=== PATIENT | male | born 1950 | race Caucasian/White ===

== ENCOUNTER 2018-11-06 13:07 | Inpatient (IN) | payer OTHER ==
[~2018-11-06] VITALS: Ht 188 cm; Wt 111.6 kg
--- NOTE | 2018-11-06 13:17 | NUR ---
AWAKE ALERT ORIENTED, UNHAPPY PATIENT, BROUGHT IN BY AMBULANCE C/O LT LEG SWELLING MODERATE PAIN SINCE 2 WEEKS,LT LOWER LEG SWOLLEN WITH REDNESS,POSSIBLE CELLULITIS,
--- NOTE | 2018-11-06 13:46 | NUR ---
I INFORMED PT OF THE NEED FOR URINE HE IS AWARE OF
--- NOTE | 2018-11-06 13:52 | NUR ---
BLOOD CULTURES COLLECTED BY FUR FLOOR WORKER, PT TOLERATED WELL.
--- NOTE | 2018-11-06 13:53 | NUR ---
PT LOOKS LIKE HE HASNT HAD A SHOWER IN A FEW DAYS.PT HAS A BAD BODY ODOR, PT STATES' dont woryy about when i
[2018-11-06 13:54] LABS: RED CELL DISTRIBUTION WIDTH 16.3 % (11.5-14.5)
[2018-11-06 14:01] LABS: PLATELET COUNT 32 x10^3mcL (130-400)
[2018-11-06 14:04] LABS: CALCIUM 7.4 mg/dL (8.5-10.1); CARBON DIOXIDE 23.9 mmol/L (21-32); CHLORIDE SERUM 100 mmol/L (98-107); CREATININE SERUM 1.6 mg/dL (0.7-1.3); GFR1 46 mL/min; GLUCOSE SERUM 126 mg/dL (74-106); POTASSIUM SERUM 3.6 mmol/L (3.5-5.1); SODIUM SERUM 132 mmol/L (136-145)
[2018-11-06 14:09] LABS: ALKALINE PHOSPHATASE 55 U/L (46-116); ALT/SGPT 37 U/L (16-63); AST/SGOT 53 U/L (15-37); BILIRUBIN TOTAL 2.19 mg/dL (0.20-1.00)
[2018-11-06 14:13] LABS: ALBUMIN 2.3 g/dL (3.4-5.0); TOTAL PROTEIN, SERUM 5.4 g/dL (6.4-8.2)
[2018-11-06 14:29] LABS: ATYPICAL LYMPH 1 %; BAND NEUTROPHIL 2 % (0-10); BASOPHIL 0 % (0-2); MONOCYTE 1 % (0-7); SEGMENTED NEUTROPHILS 94 % (37-75)
[2018-11-06 14:30] LABS: PLATELET MORPHOLOGY PLATELETS DECREASED
[2018-11-06 14:31] LABS: ovalocyte/elliptocyte 1+; rbc morphology (normal/abnorm) ABNORMAL (NORMAL)
--- NOTE | 2018-11-06 15:26 | NUR ---
FOR ADMISSION ,PT AWARE, VANCOMYCIN IN PROGRESS, SLEEPING EASILY AWAKABLE
--- NOTE | 2018-11-06 15:53 | NUR ---
ADMITTED TO [facility], AWAKE ALERT, LEVER MILLER IN SR NO ECTOPY,RESP. EASY ,VANCOMYCIN IN PROGRESS
--- NOTE | 2018-11-06 16:10 | NUR ---
RECEIVED PT FROM ED VIA [facility], CAME IN DUE TO LLE PAIN W/ SWELLING AND REDNESS X1 WEEK. AAOX4. C/O DIZZINESS WHEN LYING FLAT IN BED. SPEECH IS CLEAR. ABLE TO FOLLOW COMMANDS. NO SOB NOTED, LUNG SOUNDS CTA. DENIES CHEST PAIN/PRESSURE, SR ON THE MONITOR. DENIES ABDOMINAL DISCOMFORT, ABDOMEN IS DISTENDED AND SOFT, BOWEL SOUNDS ACTIVE. VOIDS. W/ BLACK DISCOLORATION ON BLE. W/ ERYTHEMA AND SWELLING ON LLE. JAUNDICE NOTED. C/O 10/10 LLE PAIN WHEN TOUCHED, PAIN DESCRIBED CUTTING KNIFE. LLE ELEVATED W/ PILLOW. SIDE RAILS UPX2. CALL LIGHT ON REACH. RECEIVED PT FROM ED W/ VANCOMYCIN ONGOING. PRIMARY NURSE MJ AT BEDSIDE FOR CONTINUITY OF CARE
[2018-11-06 16:27] VITALS: BP 114/56
[2018-11-06 16:34] VITALS: Ht 188 cm; Wt 111.6 kg
--- NOTE | 2018-11-06 16:40 | NUR ---
PATIENT URINATED APPROX 75 ML OF MASHA URINE VIA URINAL. URINE SAMPLE COLLECTED AND SENT TO LAB FOR URINALYSIS. WILL CONTINUE TO MONITOR.
--- NOTE | 2018-11-06 19:35 | NUR ---
AWAKE AND ALERT, ORIENTED TO NAME, PLACE, TIME AND SITUATION. SPEECH CLEAR AND APPROPRAITE. BREATHING EVEN AND UNLABORED ON ROOM AIR. SINUS RHYTHM ON TELE, APPEARS TO HAVE ELEVATED T WAVE. DENIES HAVING CHEST PAIN OR CHEST DISCOMFORT. DENIES HAVING SHORTNESS OF BREATH. IVF OF NS AT 100ML/HR. DARK, DUSKY DISCOLORATIONS TO BOTH LEGS. ERYTHEMA AND SWELLING NOTED TO LEFT LEG. CALL LIGHT WITHIN EASY REACH.
[2018-11-06 20:31] VITALS: BP 107/56
--- NOTE | 2018-11-06 21:16 | NUR ---
IV TO LEFT HAND WILL NOT FLUSH, REMOVED. IV TO LEFT AC, 20G, FLUSHED WELL.
--- NOTE | 2018-11-06 22:58 | NUR ---
URINE SPECIMEN SENT TO LAB
[2018-11-06 23:14] LABS: microscopic required? YES; urine erythrocyte 3+ (NEGATIVE)
--- NOTE | 2018-11-06 23:20 | NUR ---
EYES CLOSED, BREATHING EVEN AND UNLABORED. HOB KEPT ELEVATED 30 DEG. CALL LIGHT WITHIN EASY REACH.
[2018-11-07 05:12] VITALS: BP 125/58
--- NOTE | 2018-11-07 07:10 | NUR ---
RECIEVED PT FROM NIGHT NURSE. PT IS LAYING DOWN IN BED WITH HOB UP. RESPRIATIONS EVEN AND UNLABORED ON ROOM AIR. PT LOOKS TO BE IN NO ACUTE DISTRESS AND DENIES ANY PAIN AT THIS TIME. TELE 4 PRESENT. IV SITE PATENT WITH NO SIGNS OF ERYTHEMA OR SWELLING WITH IV FLUIDS INFUSING. BED IN LOWEST POSITION. CALL LIGHT WITHIN REACH. WILL CONTINUE TO MONITOR.
--- NOTE | 2018-11-07 07:13 | NUR ---
EYES CLOSED, EASILY AWAKENED. BREATHING EVEN AND UNLABORED. STILL WITH SWELLING AND ERYTHEMA TO LEFT LEG. IN NO ACUTE DISTRESS. ENDORSED TO NURSE SAM. CALL LIGHT WITHIN EASY REACH.
[2018-11-07 07:39] LABS: CALCIUM 7.4 mg/dL (8.5-10.1); CARBON DIOXIDE 22.3 mmol/L (21-32); CREATININE SERUM 1.5 mg/dL (0.7-1.3); MAGNESIUM 1.9 mg/dL (1.8-2.4); POTASSIUM SERUM 3.6 mmol/L (3.5-5.1)
[2018-11-07 08:14] VITALS: BP 120/60
[2018-11-07 09:33] LABS: RED CELL DISTRIBUTION WIDTH 16.8 % (11.5-14.5)
[2018-11-07 10:17] LABS: ATYPICAL LYMPH 0 %; BAND NEUTROPHIL 8 % (0-10); BASOPHIL 0 % (0-2); MONOCYTE 2 % (0-7); PLATELET MORPHOLOGY PLATELETS DECREASED; SEGMENTED NEUTROPHILS 86 % (37-75); rbc morphology (normal/abnorm) ABNORMAL (NORMAL)
[2018-11-07 11:48] LABS: PLATELET COUNT 29 x10^3mcL (130-400)
[2018-11-07 11:54] VITALS: BP 135/68
--- NOTE | 2018-11-07 13:10 | NUR ---
PT COMPLAINING OF LEG PAIN 03/06. ERYTHEMA AND SWELLING TO LLE. ELEVATED LLE ON PILLOW AND WILL MEDICATE ACCORDING TO EMAR.
[2018-11-07 16:34] VITALS: BP 130/71
--- NOTE | 2018-11-07 18:53 | NUR ---
PT IS LAYING DOWN IN BED WITH HOB UP. PT LOOKS TO BE IN NO ACUTE DISTRESS AT THIS TIME. IV SITE PATENT WITH NO SIGNS OF ERYTHEMA OR SWELLING WITH IV FLUIDS INFUSING. DISCOLORATION TO BLE AND ERYTHEMA AND EDEMA TO LLE. RESPRIATIONS EVEN AND UNLABORED ON ROOM AIR. BED IN LOWEST POSITION. CALL LIGHT WITHIN REACH. WILL ENDORSE TO ONCOMING SHIFT.
--- NOTE | 2018-11-07 19:51 | NUR ---
AAO X 4. SPEECH CLEAR AND APPROPRIATE. HOB ELEVATED 30 DEG. SIDE RAILS IN RAISED POSITION, BED IN LOWEST POSITION. BREATHING EVEN AND UNLABORED ON ROOM AIR. AMBULATORY WITH ASSISTANCE. IVF OF NS INFUSING AT 100ML/HR. BOTH LEGS ARE DUSKY IN COLOR, WITH ERYTHEMA AND SWELLING TO LEFT LEG.
[2018-11-07 21:09] VITALS: BP 112/56
--- NOTE | 2018-11-07 22:33 | NUR ---
CALLED RADIOLOGY, SPOKE WITH SHELBY, TO FOLLOW-UP RESULTS OF US ABD.
--- NOTE | 2018-11-08 00:21 | NUR ---
PLACED US ABD RESULTS IN CHART.
--- NOTE | 2018-11-08 00:22 | NUR ---
EYES CLOSED, BREATHING EVEN AND UNLABORED. SLEEPING ON HIS RIGHT SIDE. PT REPOSITIONS SELF IN BED. CALL LIGHT WITHIN EASY REACH. HOB KEPT ELEVATED 30 DEG.
--- NOTE | 2018-11-08 05:38 | NUR ---
EYES CLOSED, EASILY AWAKENED. VOIDING WELL, VOIDED TO URINAL. MASHA COLORED URINE. STILL WITH ERYTHEMA TO LEFT LOWER EXTREMITY. IVF INFUSING WELL. IV SITE FREE FROM ERYTHEMA OR SWELLING.
[2018-11-08 05:46] VITALS: BP 126/50
[2018-11-08 07:14] LABS: CALCIUM 6.9 mg/dL (8.5-10.1); CARBON DIOXIDE 21.2 mmol/L (21-32); CHLORIDE SERUM 104 mmol/L (98-107); CREATININE SERUM 1.2 mg/dL (0.7-1.3); GFR1 > 60 mL/min; GLUCOSE SERUM 87 mg/dL (74-106); POTASSIUM SERUM 3.6 mmol/L (3.5-5.1); SODIUM SERUM 136 mmol/L (136-145)
--- NOTE | 2018-11-08 07:16 | NUR ---
AWAKE AND ALERT, ASKING ABOUT BREAKFAST. BREATHING UNLABORED ON ROOM AIR. CALL LIGHT WITHIN EASY REACH. STILL WITH ERYTHEMA TO LEFT LOWER EXTREMITY. ENDORSED TO NURSE LO
[2018-11-08 07:35] LABS: BASOPHIL % 0.1 % (0-2)
[2018-11-08 07:48] LABS: PLATELET COUNT 46 x10^3mcL (130-400); RED CELL DISTRIBUTION WIDTH 17.1 % (11.5-14.5)
--- NOTE | 2018-11-08 07:50 | NUR ---
RC'D PT RESTING IN BED WITH NO APPARENT SIGNS OF DISTRESS. A/A/O/X4, SPEECH CLEAR AND APPROPRIATE. DENIES BEE/DIZZINESS. ON TELE, DENIES CHEST PAIN/PRESURE. PALP PULSES, EDEMA NTOED TO BLE. RESPIRATIONS EQUAL AND UNLABORED. LUNGS DIM. ON RA, DENIES SOB. ABDOMEN ROUND AND OBESE. ACTIVE BS.DENIES N/V. VOIDS FREELY, URINAL AT BEDSIDE. GENERALIZED WEAKNESS. BLE EDEMA/DARK/DUSKY NOTED, ELECTRIC TRACK SWITCH MAINTAINER, ELEVATED ON PILLOW. PT DENIES EXCESSIVE PAIN AT THIS TIME. IV PATENT AND INTACT. BE DIN LOW POSITION. CALL LIGHT IN REACH. WILL CONTINUE TO MONITOR
--- NOTE | 2018-11-08 08:29 | NUR ---
AM MEDICATION COLCAE REFUSED AT THIS TIME. PT RESTING IN BED WITH NO APPARENT SIGNS OF DISTRESS. RESPIRATIONS EQUAL AND UNLABORED. ON RA, DENIES OSB. PT DENIES PAIN AT THIS TIME. BED IN LOW POSITION. CALL LIGHT IN REACH. WILL CONTINUE TO MONITOR
[2018-11-08 09:48] VITALS: BP 125/53
[2018-11-08 12:32] VITALS: BP 156/58
--- NOTE | 2018-11-08 12:54 | NUR ---
PT SITTING IN CHAIR WITH NO APPARENT SIGNS OF DISTRESS. RESPIRATIONS EQUAL AND UNLABORED. ON RA, DENIES SOB. PT DENIES EXCESSIVE PAIN AT THIS TIME. BEDIN LOW POSITION. CALL LIGHT IN REACH. WILL CONTINUE TO MONITOR
[2018-11-08 16:32] VITALS: BP 138/59
--- NOTE | 2018-11-08 17:46 | NUR ---
REMOVED IV FROM LAC, NO S/S BLEEDING OR INFECTION; INSERTED NEW IV CATH TO LFA, GOOD BLOOD RETURN, GOOD FLUSHING. WILL ENDORSE TO KATHRYN LO.
--- NOTE | 2018-11-08 18:51 | NUR ---
PT RESTING IN CHAIR, MEDSURG. NO APPARENT S/S OF CHEST PAIN/PRESSURE. RESPIRATIONS EQUAL AND UNLABORED. ON RA, DEIES SOB. JNO ACUTE SKIN CHANGES NOTED AT THIS TIME. GENERALIZED WEAKNESS. IV PATENT AND INTACT. BED IN LOW POSTIION. CALL LIGHT IN REACH. WILL ENDORSE TO JV BASEBALL COACH RN
--- NOTE | 2018-11-08 19:33 | NUR ---
PT RECIEVED FROM THE DAY SHIFT RN. PT IS ALERT AND ORIENTED X4. PT IS WATCHING TV AT THIS TIME. NO ACUTE DISTRESS NOTED. PT HAS NO COMPLAINT OF PAIN AT THIS TIME. SAFETY AND COMFORT MEASURES MAINTAINED, BED IN LOWEST POSITION, CALL LIGHT WITHIN REACH.
[2018-11-08 21:14] VITALS: BP 136/58
--- NOTE | 2018-11-09 00:10 | NUR ---
PT IS RESTING IN BED WITH EYES CLOSED AT THIS TIME. NO ACUTE DISTRESS NOTED AT THIS TIME. PT IV INFUSING AND INTACT. SAFETY AND COMFORT MEASURES MAINTAINED, BED IN LOWEST POSITION, CALL LIGHT WITHIN REACH. WILL CONTINUE TO MONITOR AT THIS TIME. PT STOOL IS BROWN AND LIQUID IN CONSISTENCY. THIS IS THE PATIENTS SECOND STOOL. WILL CONTINUE TO MONITOR AT THIS TIME.
--- NOTE | 2018-11-09 02:24 | NUR ---
PT IS RESTING IN BED WITH EYES CLOSED AT THIS TIME. NO ACUTE DISTRESS NOTED. NO S/S OF PAIN AT THIS TIME. SAFETY AND COMFORT MEASURES MAINTAINED, BED IN LOWEST POSITION, CALL LIGHT WITHIN REACH.
--- NOTE | 2018-11-09 05:09 | NUR ---
PT HAS RESTED IN INTERMITTENT INTERVALS THROUGHOUT THE SHIFT. PT HAS BEEN AGITATED AT TIMES, BUT OVERALL PLEASANT DURING THE SHIFT. NO COMPLAINT OF PAIN AT THIS TIME. COMMODE AT BEDSIDE, IV INFUSING AND INTACT. NO ACTUE DISTRESS NOTED. SAFETY AND COMFORT MEASURES MAINTAINED, BED IN LOWEST POSITION, CALL LIGHT WITHIN REACH.
[2018-11-09 05:24] VITALS: BP 132/53
--- NOTE | 2018-11-09 05:31 | NUR ---
PT HAS ELEVATED TEMPERATURE OF 101.1 TEMPORAL. 650 MG TYLENOL GIVEN. WILL REASSESS TEMPERATURE.
[2018-11-09 07:40] LABS: BASOPHIL % 0.2 % (0-2)
--- NOTE | 2018-11-09 07:40 | NUR ---
RC'D PT RESTING IN BED WITH NO APPARENT SIGNS OF DISTRESS. A/A/O/X4, SPEECH CLEAR AND APPROPRIATE. DENIES BEE/DIZZINESS. MEDSURG. DENIES CHEST PAIN/PRESSURE. PALP PULSES, EDEMA NOTED TO LLE. RESPIRAITONS EQUAL AND UNLABROED. LUNGS DIM. ON RA, DENIES SOB. ABDOMEN ROUND AND SOFT. ACTIVE BS. DENIES N/V AT THIS TIME. VOIDS FREELY. GENERALIZED WEAKNESS. AMB WITH ASSIST. BLE DARK DUSKY SKIN, LLE ERYTHEMA AND INFLAMMATION, MITALI AND ELEVATED. PT DENIES EXCESSIVE PAIN AT THIS TIME. IV PATENT AND INTACT. BED IN LOW POSITION. CALL LIGHT IN REACH. WILL CONTINUE TO MONITOR
[2018-11-09 07:42] LABS: PLATELET COUNT 59 x10^3mcL (130-400); RED CELL DISTRIBUTION WIDTH 16.8 % (11.5-14.5)
[2018-11-09 07:49] LABS: CALCIUM 7.2 mg/dL (8.5-10.1); CARBON DIOXIDE 19.7 mmol/L (21-32); CHLORIDE SERUM 107 mmol/L (98-107); CREATININE SERUM 1.1 mg/dL (0.7-1.3); GFR1 > 60 mL/min; GLUCOSE SERUM 90 mg/dL (74-106); MAGNESIUM 2.1 mg/dL (1.8-2.4); POTASSIUM SERUM 3.8 mmol/L (3.5-5.1); SODIUM SERUM 137 mmol/L (136-145)
[2018-11-09 09:00] VITALS: BP 129/67
--- NOTE | 2018-11-09 09:10 | NUR ---
PT REFUSED AM MEDICATIONS. PT PASSIVE AT THIS TIME, JUST "WANTS TO BE LEFT ALONE TO SLEEP". RESPIRATIONS EQUAL AND UNLABORED. ON RA, NO S/S OF RESP DISTRESS. BED IN LOW POSITION. CALL LIGHT IN REACH.WILL COTNINUE TO MONITOR
--- NOTE | 2018-11-09 10:53 | NUR ---
PT C/O OF PAIN, MEDICATED PER EMAR. RESPIRATIONS EQUAL AN DUNLABORED. ON RA, DENIES SOB. BED IN LOW POSITION. CALL LIGHT IN REACH. WILL COTNINUE TO MONITOR
--- NOTE | 2018-11-09 13:54 | NUR ---
PHYSICAL THERAPY NOTE SEEN FOR FOLLOW UP PHYSICAL THERAPY TX SESSION. DEMO IND ON BED MOB, TRANSFER AND GAIT. FURTHER TX SESSIONS NOT INDICATED AT THIS TIME. END TO NSG FOR ADLS AND MOB NEEDS
[2018-11-09] MEDS ORDERED: NORCO1 TA2 PO (15:34)
[2018-11-09] MEDS ORDERED: ROC1I IV (15:34)
[2018-11-09] MEDS ORDERED: COL100 PO (15:35)
[2018-11-09] MEDS ORDERED: VANCO 1.51.5 GM/250 IV (15:35)
--- NOTE | 2018-11-09 17:05 | NUR ---
PT RESTING IN BED SLEEPING WITH VISIBLE RESPIRATIONS, NO RESP DISTRESS NOTED. MEDSURG. NO CP. NO ACUTE SKIN CHANGES NOTED. IV PATENT AND INTACT. BED IN LOW POSITION. CALL LIGHT IN REACH. WILL ENDORSE TO SHANK PINNER RN
--- NOTE | 2018-11-09 19:19 | NUR ---
PT RECIEVED FROM THE DAY SHIFT RN. PT IS ALERT AND ORIENTED X4, PT IS NON-COMPLIANT WITH CARE, HOWEVER AT THIS TIME PT IS CALM AND COOPERATIVE WITH CARE. NO ACUTE DISTRESS NOTED. PT VANCOMYCIN IS RUNNING AT THIS TIME. SAFETY AND COMFORT MEASURES MAINTAINED, BED IN LOWEST POSITION, CALL LIGHT WITHIN REACH.
[2018-11-09 21:31] VITALS: BP 146/52
--- NOTE | 2018-11-10 00:20 | NUR ---
PT IS RESTING IN BED WITH EYES CLOSED, PT HAS BEEN CALM AND COOPERATIVE WITH CARE. NO ACUTE DISTRESS NOTED. NO S/S OF PAIN NOTED. SAFETY AND COMFORT MEASURES MAINTAINED, BED IN LOWEST POSITION, CALL LIGHT WITHIN REACH. WILL CONTINUE TO MONITOR AT THIS TIME.
--- NOTE | 2018-11-10 03:25 | NUR ---
PT IS RESTING IN BED WITH EYES CLOSED AT THIS TIME. NO ACUTE DISTRESS NOTED. NO S/S OF PAIN NOTED. PT HAS BEEN CALM AND COOPERATIVE WITH CARE AT THIS TIME.
[2018-11-10 05:10] VITALS: BP 146/54
--- NOTE | 2018-11-10 05:16 | NUR ---
PT HAS SLEPT IN INTERMITTENT INTERVALS THROUGHOUT THE SHIFT. PT HAS BEEN ALERT AND ORIENTED X3. NO COMPLAINT OF PAIN AT THIS TIME. IV INFUSING AND INTACT, PT HAS BEEN CALM AND COOPERATIVE WITH CARE. SAFETY AND COMFORT MEASURES MAINTAINED, BED IN LOWEST POSITION, CALL LIGHT WITHIN REACH, WILL ENDORSE CONTINUITY OF CARE TO ONCOMING RN.
--- NOTE | 2018-11-10 07:20 | NUR ---
RECEIVED PATIENT FROM COST ACCOUNTING ANALYST NURSE. PATIENT IS RESTING WITH BOTH EYES CLOSED, AROUSABLE. ON ROOM AIR, BREATHING APPEARS EVEN AND UNLABORED. DARK DISCOLORATION NOTED TO BLE. IV NOTED TO RFA, IVF INFUSING WELL ORDERED, NO S/S REDNESS OR EDEMA AT SITE. CALL LIGHT WITHIN EASY REACH. WILL CONTINUE PLAN OF CARE.
[2018-11-10 08:17] VITALS: BP 144/69
--- NOTE | 2018-11-10 09:02 | NUR ---
SPOKE WITH PATIENT REGARDING PICC LINE PLACEMENT. PATIENT STATES "I AM NOT LEAVING THE HOSPITAL TODAY. I AM FINE WITH THE IV FOR A LONG TIME BUT ONLY IF I CAN USE IT IN THE HOSPITAL. I DO NOT WANT A NURSE TO HELP ME OUTSIDE THE HOSPITAL. TEACH ME AND I WILL DO IT ALL MYSELF. MY LEG INFECTION IS BAD." PATIENT REASSURED AND EXPLAINED THE IMPORTANCE OF THE PICC LINE FOR RESIDENTIAL IV ABX USE WITH ASSISTANCE FROM A NURSE TO ADMINISTER MEDICATIONS. DR MERCEDES PAGED AT THIS TIME REGARDING PATIENTS STATEMENT PRIOR TO CALLING PICC PLACEMENT COMPANY DUE TO PATIENTS NON COMPLIANCE WITH CARE. CHARGE NURSE, MICHELL BADILLO.
--- NOTE | 2018-11-10 09:34 | NUR ---
SPOKE WITH DR MERCEDES REGARDING PICC LINE PLACEMENT FOR PATIENT. TO CONTINUE WITH PLACEMENT. PICC LINE # CALLED AT WITH NO ANSWER X2. UNABLE TO LEAVE . NUMBER VERIFIED WITH [employer] [employer]. PENDING CALL BACK FROM [facility].
[2018-11-10 11:40] VITALS: BP 145/66
--- NOTE | 2018-11-10 12:41 | NUR ---
PICC RN'S PLUS CALLED AT # . PENDING CALL BACK FROM RN FOR PICC PLACEMENT.
[2018-11-10 13:09] VITALS: BP 145/66
--- NOTE | 2018-11-10 14:33 | NUR ---
INFORMED CONSENT SIGNED AT THIS TIME. PICC LINE NURSE TO BE CONTACTED. DR MERCEDES INFORMED OF PATIENTS DISCHARGE APPEAL.
[2018-11-10 16:13] VITALS: BP 143/67
--- NOTE | 2018-11-10 18:19 | NUR ---
ATTEMPTED TO CALL PICC LINE NURSE WITH NO ANSWER. MESSAGE LEFT REGARDING ETA FOR PICC LINE PLACEMENT.
--- NOTE | 2018-11-10 18:30 | NUR ---
PATIENT RESTING IN BED WITH NO C/O PAIN OR DISCOMFORT AT REST. BLE ELEVATED AT THIS TIME. IV SITE PATENT AND INVF INFUSING WELL, NO S/S ERYTHEMA AT SITE. CALL LIGHT WITHIN EASY REACH. WILL ENDORSE PATIENT CARE TO CORPORATE BANKING OFFICER NURSE.
--- NOTE | 2018-11-10 19:20 | NUR ---
CARE ASSUMED FROM OUTGOING RN. NO ACUTE DISTRESS NOTED. EVEN AND UNLABORED RESPIRATIONS NOTED ON RA. DENIES ANY CHEST PAIN/PRESSURE. ERYTHEMA NOTED ON LLE. PITTING EDEMA NOTED TO BLE. DARK DISCOLORATIONS NOTED TO BLE. BED IN LOWEST POSITION. SIDE RAILS UP X2. CALL LIGHT WITHIN REACH. WILL CONTINUE TO MONITOR.
--- NOTE | 2018-11-10 20:20 | NUR ---
PICC LINE RN AT BEDSIDE. TIME OUT PERFORMED. ALL CONSENT AND PAPERWORK SIGNED. ALL EQUIPMENT AT BEDSIDE. WILL CONTINUE TO MONITOR.
--- NOTE | 2018-11-10 21:10 | NUR ---
PICC RN COMPLETED INSERTION OF PICC LINE. RADIOLOGY AT BEDSIDE PERFORMING CXR FOR VERIFICATION OF PICC LINE PLACEMENT. PT TOLERATED PROCEDURE WELL. NO ACUTE DISTRESS NOTED. BED IN LOWEST POSITION. SIDE RAILS UP X2. CALL LIGHT WITHIN REACH. WILL CONTINUE TO MONITOR.
[2018-11-10 22:36] VITALS: BP 139/60
--- NOTE | 2018-11-10 23:34 | NUR ---
IV TO RAC LEAKING. DC'ED IV. INSERTED IV TO LEFT WRIST WITH BLOOD RETURN AND FLUSHING WELL. RESTARTED IV FLUIDS PER EMAR. PT TOLERATED PROCEDURE WELL. BED IN LOWEST POSITION. SIDE RAILS UP X2. CALL LIGHT WITHIN REACH. WILL CONTINUE TO MONITOR.
--- NOTE | 2018-11-11 00:24 | NUR ---
PT RESTING COMFORTABLY IN BED. NO ACUTE DISTRESS NOTED. EVEN AND UNLABORED RESPIRATIONS NOTED ON RA. IV PATENT AND INTACT RUNNING FLUIDS PER EMAR. LEG PAIN RESOLVING WITH ON/OFF TINGLING SENSATION. BED IN LOWEST POSITION. SIDE RAILS UP X2. CALL LIGHT WITHIN REACH. WILL CONTINUE TO MONITOR.
[2018-11-11 04:42] VITALS: BP 131/80
[2018-11-11 06:40] LABS: BASOPHIL % 0.4 % (0-2)
[2018-11-11 06:41] LABS: PLATELET COUNT 99 x10^3mcL (130-400); RED CELL DISTRIBUTION WIDTH 16.1 % (11.5-14.5)
--- NOTE | 2018-11-11 06:45 | NUR ---
PT RESTED COMFORTABLY IN BED THROUGHOUT THE SHIFT. NO ACUTE CHANGES OR DISTRESS NOTED. EVEN AND UNLABORED RESPIRATIONS ON RA. IV STARTED ON THE LEFT WRIST PATENT, INTACT AND RUNNING FLUIDS PER EMAR. PICC LINE TO JAY INSERTED, CXR VERIFIED PLACEMENT, DRESSING CDI. ALL NEEDS TENDED TO AND MET. ALL SCHEDULED MEDICATIONS GIVEN ON TIME. MEDICATED FOR LLE PAIN. PAIN RESOLVING. BED IN LOWEST POSITION. SIDE RAILS UP X2. CALL LIGHT WITHIN REACH. WILL ENDORSE TO ONCOMING SHIFT.
--- NOTE | 2018-11-11 07:10 | NUR ---
RECEIVED PATIENT FROM ACTIVITY LEADER NURSE. PATIENT IS RESTING WITH BOTH EYES CLOSED, AROUSABLE. ON ROOM AIR, BREATHING EVEN AND UNLABORED. BLE ELEVATED ON PILLOWS, ERYTHEMA NOTED TO LLE. DARK DISCOLRATION NOTED TO BLE. IV NOTED TO LEFT WRIST, IVF INFUSING WELL ORDERED, NO S/S ERYTHEMA. PICC LINE NOTED TO JAY, NO S/S ERYTHEMA AT SITE. CALL LIGHT WITHIN EASY REACH. WILL CONTINUE PLAN OF CARE.
--- NOTE | 2018-11-11 07:57 | NUR ---
DR ABREU NOITIFIED OF CHEST X-RAY RESULTS.
[2018-11-11 08:02] LABS: CALCIUM 7.4 mg/dL (8.5-10.1); CARBON DIOXIDE 22.2 mmol/L (21-32); CHLORIDE SERUM 107 mmol/L (98-107); CREATININE SERUM 0.9 mg/dL (0.7-1.3); GFR1 > 60 mL/min; GLUCOSE SERUM 83 mg/dL (74-106); POTASSIUM SERUM 3.9 mmol/L (3.5-5.1); SODIUM SERUM 139 mmol/L (136-145)
[2018-11-11 09:31] VITALS: BP 132/76
--- NOTE | 2018-11-11 12:44 | NUR ---
PATIENT REFUSES TO ELEVATE LOWER EXTREMETIES. PATIENT STATES "IT IS TOO PAINFUL AND PLUS IT IS JUST FLUID IN THERE." PATIENT EDUCATED ON REFUSAL AND REASON FOR ELEVATION. WILL CONTINUE TO MONITOR.
--- NOTE | 2018-11-11 13:41 | NUR ---
SALON SHAMPOO ASSISTANT CALLED FROM [facility] REGARDING DC APPEAL. CASE # [id number] DENIES. LAST COVERED DAY IS 11/11. PATIENT TO RESUME [facility]ST OF ALL MEDICAL CARE ON 11/12 AT 1200. PATIENT INFORMED OF CONVERSATION AND UPDATED. PATIENT VERBALIZES UNDERSTANDING. PATIENT GIVEN CALL BACK NUMER TO REACH [facility] IF ANY QUESTIONS.
--- NOTE | 2018-11-11 15:01 | NUR ---
SPOKE TO PATIENT REGARDING DECLINED DISCHARGE APPEAL. PATIENT VERBALLY AGREES TO DC TO SNF FOR IV ABX PER DC PLAN. CHARGE NURSE: TOM HERNANDEZ: FEROZ CRAMER: RUTH ANN CRAVEN.
[2018-11-11 17:22] VITALS: BP 115/46
--- NOTE | 2018-11-11 19:25 | NUR ---
CARE ASSUMED FROM OUTGOING RN. PT RESTING IN BED COMFORTABLY. NO ACUTE DISTRESS NOTED. EVEN AND UNLABORED RESPIRATIONS ON RA. IV PATENT AND INTACT RUNNING FLUIDS PER EMAR. PICC LINE NOTED TO JAY. DRESSING CDI. ERYTHEMA AND EDEMA NOTED TO PT LLE. COMPLAINTS OF PAIN TO THE LLE. WILL MEDICATE PER EMAR. BED IN LOWEST POSITION. SIDE RAILS UP X2. CALL LIGHT WITHIN REACH. WILL CONTINUE TO MONITOR.
[2018-11-11 21:01] VITALS: BP 138/71
--- NOTE | 2018-11-12 00:13 | NUR ---
PT ASLEEP COMFORTABLY IN BED. NO ACUTE DISTRESS NOTED. EVEN AND UNLABORED RESPIRATIONS ON RA. IV PATENT AND INTACT RUNNING FLUIDS PER EMAR. BED IN LOWEST POSITION. SIDE RAILS UP X2. CALL LIGHT WITHIN REACH. WILL CONTINUE TO MONITOR.
[2018-11-12 05:11] VITALS: BP 133/43
[2018-11-12 06:08] LABS: BASOPHIL % 0.1 % (0-2)
[2018-11-12 06:28] LABS: PLATELET COUNT 114 x10^3mcL (130-400); RED CELL DISTRIBUTION WIDTH 16.5 % (11.5-14.5)
[2018-11-12 06:59] LABS: ALKALINE PHOSPHATASE 76 U/L (46-116); ALT/SGPT 36 U/L (16-63); AST/SGOT 39 U/L (15-37); BILIRUBIN TOTAL 1.19 mg/dL (0.20-1.00); CALCIUM 7.3 mg/dL (8.5-10.1); CARBON DIOXIDE 21.4 mmol/L (21-32); CHLORIDE SERUM 108 mmol/L (98-107); GFR1 > 60 mL/min; GLUCOSE SERUM 87 mg/dL (74-106); POTASSIUM SERUM 4.2 mmol/L (3.5-5.1); SODIUM SERUM 139 mmol/L (136-145)
[2018-11-12 07:03] LABS: ALBUMIN 1.7 g/dL (3.4-5.0)
--- NOTE | 2018-11-12 07:08 | NUR ---
PT RESTING COMFORABLY IN BED. NO ACUTE CHANGES OR DISTRESS NOTED THROUGHOUT THE SHIFT. EVEN AND UNLABORED RESPIRATIONS ON RA. IV PATENT AND INTACT RUNNING FLUIDS PER EMAR. ALL NEEDS TENDED TO AND MET. ALL SCHEDULED MEDICATIONS GIVEN. BED IN LOWEST POSITION. SIDE RAILS UP X2. CALL LIGHT WITHIN REACH. WILL ENDORSE TO ONCOMING SHIFT.
--- NOTE | 2018-11-12 07:09 | NUR ---
RECEIVED PATIENT FROM JAIL OFFICER NURSE. PATIENT IS RESTING WITH BOTH EYES CLOSED, AROUSABLE. ERYTHEM ANOTED TO LLE, ELEVATED ON 2 PILLOWS. IVF INFUSING WELL ORDERED, NO S/S ERYTHEMA AT SITE. PICC LINE TO JAY DRESSING INTACT, NO S/S ERYTHEMA AT SITE. CALL LIGHT WITHIN EASY REACH. WILL CONTINUE PLAN OF CARE.
[2018-11-12 09:47] VITALS: BP 146/63
--- NOTE | 2018-11-12 12:38 | NUR ---
PATIENT RESTING WITH BLE ELEVATED ON 2 PILLOWS. PATIENT C/O MINOR PAIN AND DISCOMFORT AND STATES NO PAIN MEDICATIONS NEEDED AT THIS TIME. IV SITE RREMAINS PATENT TO [facility], IV ABX INFUSING WELL ORDERED. WILL CONTINUE TO SUE.
--- NOTE | 2018-11-12 13:57 | NUR ---
Initial Nutrition Assessment: Semaj Montesord [id number] Dx: Severe sepsis with cellulitis PMHx: Obesity, chronic venous stasis changes, PVD, gastric ulcers and underlying liver disease (unclear specificity) PSHx: None Labs: (11/12) BUN:24H, Ca:7.3L, T bili:1.19H, AST:39H, H/H:10.1/30L Meds:Colace, Lasix, Mg sulfate, NS IV, Tylenol, Vancocin, Vancomycin, Zofran, Zosyn Diet: Cardiac PO Intake: (11/10) B:100% L:100% D:100% (11/11)B:100% L:100% D:100% Ht:74in, 6'2" Wt:245#,111.64kg BMI:31.6kg/m2 (obese) IBW:190#, 86kg %IBW:129% UBW:unable to obtain Age: 68 y/o male Food Allergies:none noted per EMR Skin:dark discoloration to BLE. Jorge Luis: 18 Edema: +3 LLE, +2 RLE, erythmea to LLE GI:active bowel sounds Last BM:11/12 Pt was admitted with lower extremity pain and swelling, particulary on the left side. Symptoms have been ongoing for the last week. Upon ER evaluation, pt was found to have cellulitis to his LLE with elevated lacric acid and was admitted foe sepsis due to cellulitis, per H&P. Per progress note 11/12, pt continues to refuse SNF or HHS with IV antibiotics. Plan is to continue IV antibiotics x 10 days (until 11/06). Recommend PICC placement and HHS with home IV abx, but patient is appealing discharge. RD attempted to visit patient several times, however, pt was with NEWSPAPER COLUMNIST going to the bathroom. Pt with good PO intake 100% of all meals. No GI issues per nurse note. Problem with: N/V/D/C:No Problems with: Chewing:/Swallowing: No Current appetite: Good Recent wt change:unable to assess %wt change:N/A Vitamin/Supplement use:none noted on EMR Special diet at home: Regular Physical activity:unable to obtain Education: unable to provide due to patient with NEWSPAPER COLUMNIST. Will follow up with education on next visit. Estimated Nutritional Needs Based on ideal body weight 86kg Energy: 2150-2580kcal/d (25-30kcal/kg for maintenance) Protein:86-103 g/d (1-1.2g/kg for geriatric maintenance) Fluid: 2100-2500ml/d (1 ml/kcal) or per doctor Nutrition Diagnosis 1. Obesity related to increased caloric intake as evidenced by BMI:31.6kg/m2 and 129% of IBW. Intervention 1. Recommend continue with cardiac diet. Monitor/Evaluate Goal: PO intake at least 75% of estimated needs Monitor: PO intake, Labs, GI function F/U in 7 days as low risk:11/19
--- NOTE | 2018-11-12 13:59 | NUR ---
1. Recommend continue with cardiac diet.
--- NOTE | 2018-11-12 16:40 | NUR ---
PATIENT C/O PAIN. CHECKED ON PATIENT AT THIS TIME. PATIENT RAISED VOICE AND STATED, "GET OUT OF HERE YOU PIECE OF SHIT. AND SHUT THE FUCKING DOOR. YOU ARE ALL STUPID IDIOTS HERE. YOU HEAR ME. YOU WORK FOR ME. YOU DON'T WORK FOR ANYONE BUT ME."
[2018-11-12 18:19] VITALS: BP 156/69
--- NOTE | 2018-11-12 18:51 | NUR ---
PATIENT RESTING IN BED IN NO ACUTE DISTRESS. DENIES PAIN AT THIS TIME. WILL ENDORSE PATIENT CARE TO ARMATURE COIL WINDER NURSE.
--- NOTE | 2018-11-12 19:05 | NUR ---
CARE ASSUMED FROM OUTGOING RN. PT RESTING COMFORTABLY IN BED. NO ACUTE DISTRESS NOTED. EVEN AND UNLABORED RESPIRATIONS ON RA. DENIES ANY CHEST PAIN/PRESSURE. IVL INTACT AND PATENT. PICC TO JAY INTACT AND PATENT. BLOOD RETURN ACHIEVED. FLUSHING WELL. ERYTHMA AND EDEMA NOTED TO LLE. BED IN LOWEST POSITION. SIDE RAILS UP X2. CALL LIGHT WITHIN REACH. WILL CONTINUE TO MONITOR.
[2018-11-12 19:38] VITALS: BP 150/62
--- NOTE | 2018-11-13 00:20 | NUR ---
PT RESTING COMFORTABLY IN BED. NO ACUTE DISTRESS NOTED. EVEN AND UNLABORED RESPIRATIONS ON RA. ZOSYN IVPB RUNNING THROUGH PERIPHERAL IV. PT TOLERATING WELL. EMPTIED 1250ML OF CLEAR YELLOW URINE FROM URINALS. BED IN LOWEST POSITION. SIDE RAILS UP X2. CALL LIGHT WITHIN REACH. WILL CONTINUE TO MONITOR.
[2018-11-13 04:48] VITALS: BP 142/64
--- NOTE | 2018-11-13 06:20 | NUR ---
PT SLEPT COMFORTABLY IN INTERVALS THROUGHOUT THE SHIFT. NO ACUTE CHANGES OR DISTRESS NOTED. EVEN AND UNLABORED RESPIRATIONS ON RA. PICC LINE PATENT AND INTACT. BLOOD RETURN NOTED. FLUSHING WELL. ALL NEEDS TENDED TO AND MET. ALL SCHEDULED MEDICATIONS GIVEN ON TIME. BED IN LOWEST POSITION. SIDE RAILS UP X2. CALL LIGHT WITHIN REACH. WILL ENDORSE TO ONCOMING SHIFT.
--- NOTE | 2018-11-13 06:31 | NUR ---
MGMT ANALYST INFORMED THAT PT REFUSED BLOOD DRAW AT THIS TIME.
[2018-11-13 08:23] LABS: BASOPHIL % 0.2 % (0-2); PLATELET COUNT 122 x10^3mcL (130-400); RED CELL DISTRIBUTION WIDTH 16.4 % (11.5-14.5)
[2018-11-13 08:34] LABS: ALKALINE PHOSPHATASE 72 U/L (46-116); ALT/SGPT 32 U/L (16-63); AST/SGOT 31 U/L (15-37); BILIRUBIN TOTAL 1.53 mg/dL (0.20-1.00); CALCIUM 7.7 mg/dL (8.5-10.1); CARBON DIOXIDE 22.3 mmol/L (21-32); CHLORIDE SERUM 108 mmol/L (98-107); GFR1 > 60 mL/min; GLUCOSE SERUM 84 mg/dL (74-106); MAGNESIUM 1.7 mg/dL (1.8-2.4); POTASSIUM SERUM 4.2 mmol/L (3.5-5.1); SODIUM SERUM 139 mmol/L (136-145)
[2018-11-13 08:52] LABS: ALBUMIN 1.7 g/dL (3.4-5.0)
--- NOTE | 2018-11-13 10:14 | NUR ---
AT 0705 - RECEIVED PATIENT FROM NIGHT NURSE. SLEEPING. RESPIRATIONS REGULAR. AT 0755 - AWAKE, ALERT AND ORIENTED. C/O PAIN IN BLE. ONLY TYLANOL ON PATIENT'S PROFILE. PATIENT SAID THAT WOULD NOT BE ENOUGH FOR HIM. CALL PLACED FOR TO OBTAIN ORDER. AT 0815 - RECEIVED CALL FROM DR ABREU WITH ORDER FOR NORCO 5/325 MG PO Q 4 PRN. AT 0835 - MEDICATED WITH NORCO PER EMAR. ALSO GIVEN IV LASIX SCHEDULED. PATIENT REFUSED COLACE BUT HAS HAD SOFT BM THIS MORNING. BLE HAVE DARK DSICOLORATION AND DRY SKIN WELL EDEMA AND REDDNESS. PATIENT ENCOURAGED TO KEEP LEGS ELEVATED FOR COMFORT AND TO REDUCE SWELLING. AT 0940 - PATIENT REPORTS THAT PAIN IN BLE IN EVERPRESENT. AT 1000 - STRONG SMELL OF CIGARETTE SMOKE EMINATING FROM PATIENT'S ROOM. PATIENT DENIED THAT HE WAS SMOKING. SEEN BY CHARGE NURSE AND HOSPITAL ROTARY CUTTER. SEEN BY DR ABREU. PATIENT
[2018-11-13 10:20] VITALS: BP 139/69
--- NOTE | 2018-11-13 12:42 | NUR ---
IV ZOSYN IN PROGRESS AT THIS TIME. PATIENT VOIDCING ANGER ABOUT PLAN TO GO TO SNF FOR CONTINUATION OF IV ANTIBIOTICS. PATIENT SAID: "I DO MY OWN THING. NOBODY TELLS ME WHAT TO DO".
--- NOTE | 2018-11-13 13:26 | NUR ---
AT 1250 - COMMENCED 2 GRAM MAGNESIUM RIDER FOR MG LEVEL OF 1.7.
--- NOTE | 2018-11-13 15:09 | NUR ---
MG MACEDO COMPLETED. BLOOD HAS BEEN DRAWN FOR VANCOMYCIN TROUGH. AWAITING RESULTS BEFORE MEDICATION IS RELEASED BY PHARMACY.
--- NOTE | 2018-11-13 15:34 | NUR ---
SPOKE WITH PHARMACIST ABOUT VANCOMYCIN THROUGH. THEY WILL REDOSE MEDICATION.
--- NOTE | 2018-11-13 16:10 | NUR ---
VANVOMYCIN IN PROGRESS. RECEIVED WORD FROM CASE MANAGEMENT THAT PATIENT IS TO BE DISCHARGED TO [facility]. TRANSPORT [phone].
[2018-11-13 16:17] VITALS: BP 139/69
[2018-11-13 18:02] VITALS: BP 139/69
--- NOTE | 2018-11-13 18:23 | NUR ---
AT 1700 - PICC LINE DRESSING CHANGED EPR PROTOCOL USING STERILE TECHNIQUE. NOTED THAT PICC LINE IS NOT SUTURED TO SKIN - SECURED WITH TAPE ONLY. BLE PHOTO DOCUMENTED. AT 1730 - IV ZOSYN NOW IN PROGRESS. PATIENT SIGNED TRANSFER ACKNOWLEDGEMENT. AT 1745 - REPORT GIVEN TO PAWEL AT [facility]. AT 1800 - PICC LINE SALINE LOCKED. PATIENT HAS EATEN. [facility] IS HERE. AT 1815 - DISCHARGED TO [facility] VIA [facility]. TRANSFER PACKET SENT WITH PATIENT.
== END 2018-11-13 18:19 | DRG 872 ==
LOC: ED 13:07 → DU 15:02 → MU 15:02 → DU 16:17 → MU 11-08 14:57
PROVIDERS: Emergency Medicine; Internal Medicine Pulmonary Disease; ADMIT Internal Medicine Pulmonary Disease
DX: A41.9 Sepsis, unspecified organism (principal); L03.116 Cellulitis of left lower limb; N17.9 Acute kidney failure, unspecified; E44.0 Moderate protein-calorie malnutrition; I73.9 Peripheral vascular disease, unspecified; I87.2 Venous insufficiency (chronic) (peripheral); K74.60 Unspecified cirrhosis of liver; E80.6 Other disorders of bilirubin metabolism; D69.59 Other secondary thrombocytopenia; F17.210 Nicotine dependence, cigarettes, uncomplicated; Z68.31 Body mass index [BMI] 31.0-31.9, adult
CPT/HCPCS: 87046; 87046-59; 97530-GP; C1751; J0696; J1940; J2543; J3370; J3475; J7030; J7050; Q0092; Q9967